=== PATIENT | female | born 1980 | race Two or more races ===

== ENCOUNTER 2022-05-19 12:04 | Emergency (ER) | payer MEDICAID ==
[~2022-05-19] VITALS: Ht 167.6 cm; Wt 59.0 kg
[2022-05-19 12:21] VITALS: BP 119/92
[2022-05-19] MEDS ORDERED: diphenhdrAMINE HCL 50 MG/1 ML VL IV ONE (12:45)
[2022-05-19] MEDS ORDERED: LORazepam 2MG/ML-1ML VIAL IM ONE (12:45)
[2022-05-19] MEDS ORDERED: HALOPERIDOL LACTATE 5 MG/ML INJ VIAL IM ONE (12:45)
== END 2022-05-19 15:14 | disposition home or self-care (01) ==
LOC: EDBD 12:04 → ER 12:04
DX: F15.10 Other stimulant abuse, uncomplicated (principal)
CPT/HCPCS: 70450

== ENCOUNTER 2022-05-20 12:00 | Emergency (ER) | payer MEDICAID ==
[~2022-05-20] VITALS: Ht 165.1 cm; Wt 81.8 kg
[2022-05-20 12:11] VITALS: BP 118/86
[2022-05-20 13:09] LABS: Amphetamine Screen, Urine POSITIVE (NEGATIVE); Barbiturate Scree,Urine NEGATIVE (NEGATIVE); Benzodiazephine Screen, Urine NEGATIVE (NEGATIVE); Cannabinoid Screen, Urine NEGATIVE (NEGATIVE); Cocaine Screen, Urine NEGATIVE (NEGATIVE); Phencyclidine Screen, Urine NEGATIVE (NEGATIVE)
[2022-05-20 13:16] LABS: Opiate Scree,Urine NEGATIVE (NEGATIVE)
== END 2022-05-20 16:29 | disposition home or self-care (01) ==
LOC: EDBD 12:00 → ER 12:00
DX: F41.9 Anxiety disorder, unspecified (principal); F15.10 Other stimulant abuse, uncomplicated
CPT/HCPCS: 80307

== ENCOUNTER 2022-06-13 10:20 | Emergency (ER) | payer MEDICAID ==
[~2022-06-13] VITALS: Ht 149.9 cm; Wt 72.0 kg
[2022-06-13 10:36] VITALS: BP 150/106
== END 2022-06-13 12:39 | disposition home or self-care (01) ==
LOC: ER 10:20 → EDBD 10:20 → ER 12:39
DX: F15.10 Other stimulant abuse, uncomplicated (principal)